=== PATIENT | female | born 1975 | race Two or more races ===

== ENCOUNTER 2025-03-29 11:10 | Day surgery (SDC) | payer BC, SELFPAY ==
[2025-03-28 14:40] VITALS: BMI 39.1
[2025-03-29 12:33] VITALS: BP 130/76; PULSE 81; RESP 14; TEMP 36.6; O2SAT 95; BMI 39.4
--- NOTE | 2025-03-29 12:43 | EKG_ITS ---
[facility] Test Date: 2025-03-29 Pat Name: WILBER EPRALES Department: Room: - Gender: Female Senior Administrative Support: SULY : 1975 Requested By: Dominik Menendez Order Number: [id number] Reading MD: Dominik Menendez Measurements Intervals [place] Rate: 78 P: 36 CT: 155 QRS: 19 QRSD: 84 T: 31 QT: 368 QTc: 419 Interpretive Statements SINUS RHYTHM POSSIBLE LEFT ATRIAL ENLARGEMENT No previous ECG available for comparison /store/S0/[id number]/ecg/[id number].pdf
[2025-03-29 13:49] LABS: HCG,Qualitative Serum Negative
[2025-03-29 13:50] LABS: Alanine Aminotransferase 65 U/L (10-49); Albumin, Serum 4.5 gm/dL (3.5-5.0); Alkaline Phosphatase 89 U/L (46-116); Anion Gap 10 (7-16); BUN/Creatinine Ratio 17 Ratio (12-20); Bilirubin,Total 0.6 mg/dL (0.3-1.2); Blood Urea Nitrogen 19 mg/dL (9-23); Calcium 9.3 mg/dL (8.3-10.6); Calcium (Corrected) 9.3 mg/dL (8.5-10.1); Carbon Dioxide 27.4 mMol/L (20.0-31.0); Chloride 103 mMol/L (98-107); Creatinine (Component) 1.1 mg/dL (0.6-1.3); Estimated Creatinine Clearance 82.5 mL/min (>60); Globulin 2.2 gm/dL (2.3-3.5); Glucose 90 mg/dL (74-106); Osmolality,Calculated 281 (275-295); Potassium 3.7 mMol/L (3.4-5.1); Sodium 140 mMol/L (136-145); Total Protein 6.7 gm/dL (5.7-8.2); eGFR > 60 See Note
[2025-03-29 15:58] VITALS: BP 127/83; PULSE 107; RESP 19; TEMP 36.8; O2SAT 94
--- NOTE | 2025-03-29 15:58 | SUR.PHASEII ---
1558: Pt. AAOx4, vitals stable, breathing unlabored, no complaint of pain or nausea, no dressing in place, no active bleed noted, report recieved from Aliyah BALES and MD Leggett.
[2025-03-29 16:03] VITALS: BP 131/87; PULSE 105; RESP 19; TEMP 36.7; O2SAT 94
[2025-03-29] MEDS: PANTOPRAZOLE INJ 40 MG VIAL 80 MG IVP (16:07)
[2025-03-29 16:08] VITALS: BP 130/87; PULSE 94; RESP 20; TEMP 36.7; O2SAT 93
[2025-03-29 16:13] VITALS: BP 132/90; PULSE 86; RESP 20; TEMP 36.6; O2SAT 95
[2025-03-29 16:28] VITALS: BP 135/89; PULSE 85; RESP 20; TEMP 36.7; O2SAT 95
--- NOTE | 2025-03-29 16:30 | SUR.PHASEII ---
1630: Pt. AAOx4, vitals stable, breathing unlabored, no complaint of pain or nausea, no dressing in place, no active bleed noted, pt. tolerated sips of water well, pt. ambulated to wheelchair with steady gait and no assist, no complications. Gave discharge instructions to the pt. and her ride, both verbalized understanding and had no further questions. Pt. left with all personal belongings,.
== END 2025-03-29 16:30 | disposition home or self-care (01) ==
PROVIDERS: Anesthesiology; PCP Nurse Practitioner Family; Referring Provider Internal Medicine Gastroenterology; Visit Provider Internal Medicine Gastroenterology
PROC: 0DJD8ZZ Inspection of Lower Intestinal Tract, Via Natural or Artificial Opening Endoscopic (ICD-10-PCS; CPT 45378; principal; 2025-03-29 14:15)
PROC: (CPT 43239; 2025-03-29 14:15)
DX: K64.1 Second degree hemorrhoids (principal); K57.30 Diverticulosis of large intestine without perforation or abscess without bleeding; K31.89 Other diseases of stomach and duodenum; K29.50 Unspecified chronic gastritis without bleeding; Z01.810 Encounter for preprocedural cardiovascular examination
CPT/HCPCS: 45380; 36415; 80048; 80053; 81025; 84703; 93005; A4649; J2470